=== PATIENT | female | born 1980 | race Caucasian/White ===

== ENCOUNTER → 2018-02-09 17:04 | Outpatient (CLI) | payer BC ==
[2018-02-09 20:14] LABS: BASOPHILS 0.2 % (0-2); EOSINOPHILS 1.2 % (0-7); HEMATOCRIT 39.4 % (36.0-48.0); HEMOGLOBIN 12.3 g/dL (12-16); IMMATURE GRANULOCYTES 0.1 % (0-5); LYMPHOCYTES 26.1 % (15-50); MCH 24.2 pg (26.0-34.0); MCHC 31.2 g/dL (31.0-37.0); MCV 77.6 fL (80.0-100.0); MEAN PLATELET VOLUME 9.2 fL (7.4-10.4); MONOCYTES 6.7 % (2-11); NEUTROPHILS 65.7 % (40-80); PLATELET COUNT 249 10x3/uL (130-400); RBC 5.08 10x6/uL (4.00-5.40); RDW 18.1 % (11.5-14.5); WBC 8.1 10x3/uL (4.8-10.8)
[2018-02-09 20:40] LABS: CALC OSMOLALITY 282 mosm/kg (275-300); CARBON DIOXIDE 25.1 mmol/L (21.0-32.0); CHLORIDE - SERUM 106 mmol/L (98-107); CREATININE - SERUM 0.6 mg/dL (0.6-1.3); FERRITIN 13 ng/mL (3-244); GLUCOSE 85 mg/dL (74-106); POTASSIUM - SERUM 4.3 mmol/L (3.5-5.1); SODIUM 142 mmol/L (136-145); UREA NITROGEN 16 mg/dL (7-18); eGFR NON AFRICAN AMERICAN > 90 mL/min (90-120)
[2018-02-09 21:12] LABS: % SATURATION 45 % (15-55); IRON 190 ug/dl (35-150); TOTAL IRON BIND CAPACITY 420 ug/dl (260-445); UNSAT IRON BIND CAPACITY 230 ug/dl (150-375)
== END | disposition home or self-care (01) ==
LOC: D.LABREF 17:04
PROVIDERS: Internal Medicine Rheumatology
DX: D50.9 Iron deficiency anemia, unspecified (principal)

== ENCOUNTER → 2018-05-14 16:43 | Outpatient (CLI) | payer BC ==
[2018-05-14 16:58] LABS: BASOPHILS 0.4 % (0-2); EOSINOPHILS 1.9 % (0-7); HEMOGLOBIN 13.5 g/dL (12-16); IMMATURE GRANULOCYTES 0.1 % (0-5); LYMPHOCYTES 29.4 % (15-50); MCH 27.2 pg (26.0-34.0); MCHC 33.8 g/dL (31.0-37.0); MCV 80.6 fL (80.0-100.0); MEAN PLATELET VOLUME 9.2 fL (7.4-10.4); MONOCYTES 7.5 % (2-11); NEUTROPHILS 60.7 % (40-80); PLATELET COUNT 238 10x3/uL (130-400); RBC 4.96 10x6/uL (4.00-5.40); RDW 13.2 % (11.5-14.5); WBC 6.7 10x3/uL (4.8-10.8)
[2018-05-14 18:00] LABS: % SATURATION 16 % (15-55); IRON 66 ug/dl (35-150); TOTAL IRON BIND CAPACITY 398 ug/dl (260-445); UNSAT IRON BIND CAPACITY 332 ug/dl (150-375)
== END | disposition home or self-care (01) ==
LOC: D.LABREF 16:43
PROVIDERS: Nurse Practitioner
DX: D50.8 Other iron deficiency anemias (principal)

== ENCOUNTER 2019-03-19 09:00 | Outpatient (CLI) | payer BC | END 2019-03-19 10:00 | disposition home or self-care (01) | LOC: D.MAMMO 09:00 | PROVIDERS: ATTEND Obstetrics & Gynecology | DX: Z12.31 Encounter for screening mammogram for malignant neoplasm of breast (principal) ==

== ENCOUNTER 2019-05-04 10:30 | Outpatient (CLI) | payer BC | END 2019-05-04 11:00 | disposition home or self-care (01) | LOC: D.MAMMO 10:30 | PROVIDERS: ATTEND Obstetrics & Gynecology | DX: R92.8 Other abnormal and inconclusive findings on diagnostic imaging of breast (principal) ==

== ENCOUNTER 2020-04-24 08:00 | Outpatient (CLI) | payer BC | END 2020-04-24 23:59 | disposition home or self-care (01) | LOC: D.MAMMO 08:00 | PROVIDERS: ATTEND Obstetrics & Gynecology | DX: Z12.31 Encounter for screening mammogram for malignant neoplasm of breast (principal) ==